=== PATIENT | female | born 1985 | race Caucasian/White ===

== ENCOUNTER → 2023-01-11 16:00 | Outpatient (BNVA) | payer BC, SELFPAY | PROVIDERS: Visit Provider Nurse Practitioner Women's Health | DX: Z12.4 Encounter for screening for malignant neoplasm of cervix (principal); Z30.9 Encounter for contraceptive management, unspecified; N76.0 Acute vaginitis; Z01.411 Encounter for gynecological examination (general) (routine) with abnormal findings; Z30.41 Encounter for surveillance of contraceptive pills; N72 Inflammatory disease of cervix uteri | CPT/HCPCS: 87624 ==